=== PATIENT | female | born 1940 | race Caucasian/White ===

== ENCOUNTER → 2016-11-15 | Outpatient (CLI) | payer MEDICARE, OTHER ==
[~2016-11-15] MED LIST: ACT35T; ALBU0.8322 IH; ALBUTERAL NEB; CALC600T; CETI10CA PO; CHLS4PK PO; CHOL10003; CHOL4PAC16 PO; CHOL4PAC19 GT; CLOB15CR3 TP; CTRZ10T PO; CYAN250010 PO; CYAN500T2 PO; CYAN500T44 PO; D2 PO; D50KC PO; DEXL60CA PO; DEXL60CA5 PO; ESOM20CA; EST.625T PO; ESTR0.62 PO; FERR240T9 PO; FRSM40T PO; FURO40TA4 PO; GBPN100C PO; HDR4T PO; HYDR-2856; IRON1CAP21 PO; KCL10CCR PO; LUTE20TA PO; MECL-105 PO; MECL25TA56 PO; MELO-195 PO; MELO15TA14 PO; METF500T4 PO; MTF500T; MTF500T PO; MULT-557 PO; POTA10TA10 PO; POTA10TA6 PO; PREMARIN PO; RT-COMBINH PO; SCOP1PAT TOP; SLMFT1E INH; TERB24CR3; TRAM50TA2 PO; VIT B12 PO; VITA1CAP59 PO; primrose oil
--- NOTE | 2016-11-15 12:55 | Diagnostic Imaging Report ---
PROCEDURE: US abdomen complete. TECHNIQUE: Multiple real-time grayscale images were obtained over the abdomen in various projections. INDICATION: Vomiting. Blood in the stool. FINDINGS: The pancreas is largely obscured. The liver demonstrates no focal mass. There is hepatopetal flow in the portal vein seen. The gallbladder demonstrates a hyperechoic lesion measuring 3 mm that appears adherent to the wall without shadowing compatible with polyp. No stones or wall thickening. No pericholecystic fluid. The visualized portions of the abdominal aorta and IVC appear unremarkable. The spleen is 10.2 cm in length. The right kidney is 8.6 cm and the left kidney is 8 cm in length. There is no hydronephrosis or focal lesion. No ascites or fluid collection is noted. The CBD is 7 mm in caliber, borderline enlarged. No intrahepatic biliary dilatation seen. IMPRESSION: 3 mm gallbladder polyp is seen. No gallstones or evidence of cholecystitis. Borderline dilated CBD. No intrahepatic biliary dilatation is evident, however. Dictated by: Dictated on workstation # [id number]
== END ==
LOC: RAD 08:07
PROVIDERS: ATTEND Internal Medicine
DX: R10.84 Generalized abdominal pain (principal)
CPT/HCPCS: 76700

== ENCOUNTER 2016-12-01 05:39 | Outpatient (CLI) | payer MEDICARE, OTHER ==
[~2016-12-01] VITALS: Ht 149.9 cm; Wt 70.3 kg
[~2016-12-01 05:39] MED LIST changes: -CYAN250010 PO; -D50KC PO; -DEXL60CA PO; -ESTR0.62 PO; -IRON1CAP21 PO; -METF500T4 PO; -POTA10TA10 PO
[2016-12-01] MEDS ORDERED: POTA10TA10 PO (13:47)
[2016-12-01] MEDS ORDERED: CYAN250010 PO (13:47)
[2016-12-01] MEDS ORDERED: IRON1CAP21 PO (13:47)
[2016-12-01] MEDS ORDERED: ESTR0.62 PO (13:47)
[2016-12-01] MEDS ORDERED: D50KC PO (13:47)
[2016-12-01] MEDS ORDERED: DEXL60CA PO (13:47)
[2016-12-01] MEDS ORDERED: METF500T4 PO (13:47)
== END 2016-12-01 13:51 ==
LOC: PREOP 05:39
PROVIDERS: ATTEND Internal Medicine Gastroenterology
DX: Z01.818 Encounter for other preprocedural examination (principal); Z12.11 Encounter for screening for malignant neoplasm of colon

== ENCOUNTER 2016-12-03 11:57 | Day surgery (SDC) | payer MEDICARE, OTHER ==
[~2016-12-03 11:57] MED LIST changes: +CYAN250010 PO; +D50KC PO; +DEXL60CA PO; +ESTR0.62 PO; +IRON1CAP21 PO; +METF500T4 PO; +POTA10TA10 PO
[2016-12-03] MEDS ORDERED: NS IV 1000 ML 1,000 ML IV STA (12:27)
[2016-12-03 12:30] VITALS: BP 122/66
[2016-12-03] MEDS ORDERED: NS IV 1000 ML 1,000 ML ONE (12:31)
[2016-12-03] MEDS ORDERED: proPOfol 200 MG/20 ML (DIPRIVAN) VIAL IV ONE (13:34)
[2016-12-03] MEDS ORDERED: MIDAZOLAM 2 MG/2 ML (VERSED) VIAL ONE (14:17)
--- NOTE | 2016-12-03 14:21 | Progress Note-Pre Operative ---
Pre-Operative Progress Note H&P Reviewed The H&P was reviewed, patient examined and no changes noted. Date H&P Reviewed: Dec 03, 2016 Time H&P Reviewed: 14:18 Pre-Operative Diagnosis: Screening colonoscopy FELA TRAORE DO Dec 03, 2016 14:21
--- NOTE | 2016-12-03 14:45 | Progress Note-Post Operative ---
Post-Operative Progess Note [employer] Utility Worker none Pre-Operative Diagnosis Screening colonoscopy Post-Operative Diagnosis Tics Internal hem Post-Op Procedure Note Date of Procedure: Dec 03, 2016 Name of Procedure: colonoscopy Anesthesia Type iv sedation, propofol by medical office administrator Estimated blood loss (mL): scant Specimen(s) collected none FELA TRAORE DO Dec 03, 2016 14:45
--- NOTE | 2016-12-03 14:47 | Endoscopy Discharge Instruct ---
Findings Findings 1.: Diverticulosis, Internal Hemorrhoids Discharge Instructions - Activity: You might feel a little sleepy until tomorrow. This is due to the medicine you received to relax you. Until tomorrow, you should: NOT drive a car, operate machinery or power tools. NOT drink any alcoholic beverages. NOT make any important decisions or sign importortant papers. Do not return to work until tomorrow, unless otherwise instructed. Resume previous activities tomorrow. Diet: Start by taking liquids. If you tolerate liquids, advance to solid food. Instructions: 1.: Colonscopy in 10 years Notify Physician - If you experience excessive bleeding, unusual abdominal pain, fever, or chest pain, contact your doctor immediately. Phone number [phone] Follow-Up: - I have received and understand the above instructions and will call my doctor if I have any further questions. Patient Signature Date Nurse Signature Other (Relationship) FELA TRAORE DO Dec 03, 2016 14:47
[2016-12-03 15:00] VITALS: BP 123/74
[2016-12-03 15:30] VITALS: BP 134/76
[2016-12-03 16:00] VITALS: BP 134/76
--- NOTE | 2016-12-04 23:27 | PROCEDURE REPORT ---
PROCEDURE PHYSICIAN: FELA GARCIA DATE OF PROCEDURE: 12/03/2016 PREOPERATIVE DIAGNOSIS: Screening colonoscopy. POSTOPERATIVE DIAGNOSIS: 1. Diverticula. 2. Internal hemorrhoids. PROCEDURE: Colonoscopy. SURGEON: Dr. Garcia FUR STORAGE CLERK: None. ANESTHESIA: IV sedation with propofol by the SQL BI DEVELOPER. SPECIMENS: None. BLOOD LOSS: Scant. FLUIDS: Per anesthesia. POSTOPERATIVE: Stable. INDICATIONS FOR THE PROCEDURE: The patient is a 76-year-old female who needed a screening colonoscopy, made have had a remote history of bleeding. FINDINGS: The patient had some diverticula and some internal hemorrhoids. Internal hemorrhoids are probably grade II and most likely the cause of any bleeding she has seen or experienced. PROCEDURE NOTE: After informed consent was obtained, the patient was brought to the endoscopy suite and placed in the left lateral decubitus position. She was administered IV sedation by SQL BI DEVELOPER. Colonoscope was then inserted and pushed all the way to about 150 cm from the iliac to the cecum. Took a picture of the appendiceal orifice and then able to get into the terminal ileum. Took a picture of the internal ileum and then slowly withdrew the scope insufflating, looked circumferential knight, looked at the cecum, up the ascending colon to the hepatic flexure and then down the transverse colon to the splenic flexure into the descending colon and then down into the sigmoid. In the sigmoid, saw some diverticula, took a picture of this and then continued down into the rectum, retroflex in the rectal vault. Saw some grade II internal hemorrhoids, took a picture this and then removed the scope. There was a little bit of bleeding from around the hemorrhoids but very minimal. I removed the scope. The patient tolerated the procedure and she was transferred to recovery room in stable condition. Job ID: [id number] Dictated Date: 12/03/2016 14:49:57 Talent Acquisition Operations Manager Date: 12/04/2016 23:20:06 / nancy
== END 2016-12-03 16:00 | disposition home or self-care (01) ==
LOC: ENDO 11:57
PROVIDERS: ATTEND Surgery
DX: Z12.11 Encounter for screening for malignant neoplasm of colon (principal); K57.30 Diverticulosis of large intestine without perforation or abscess without bleeding; K64.8 Other hemorrhoids

== ENCOUNTER → 2016-12-06 | Outpatient (CLI) | payer MEDICARE, OTHER ==
[~2016-12-06] MED LIST changes: +CATHETER FLUSH 10 ML SYR IV PRN
--- NOTE | 2016-12-06 12:22 | Diagnostic Imaging Report ---
CLINICAL INDICATION: Patient with nausea, vomiting, and diarrhea. COMPARISON: Complete abdominal ultrasound dated 11/15/2016. PROCEDURE: The patient was administered 5.42 millicuries of technetium 99m Choletec. After 60 minutes of the images, one can of Ensure was drink followed by another 60 minutes of imaging. A nuclear medicine hepatobiliary scan with ejection fraction was performed. Of note, patient had mild abdominal discomfort during the exam. FINDINGS: There is prompt uptake and excretion of radiotracer by the liver. Activity is visible in the gallbladder by 15 minutes and the small bowel by 35 minutes. Ejection fraction of the gallbladder is calculated at 98% (normal >35%). The gallbladder visibly empties on the scans following the ingestion of Ensure. IMPRESSION: Normal hepatobiliary scan with normal gallbladder ejection fraction. Dictated by: Dictated on workstation # [id number]
== END ==
LOC: CARD 06:03
PROVIDERS: ATTEND Surgery
DX: R11.2 Nausea with vomiting, unspecified (principal); R19.7 Diarrhea, unspecified
CPT/HCPCS: 78227

== ENCOUNTER → 2016-12-20 | Outpatient (CLI) | payer MEDICARE, OTHER ==
[~2016-12-20] MED LIST changes: +BARIUM SUSPENSION 105% (LIQUID POLIBAR PLUS) 240 ML/DOSE PO ONE; +BARIUM SUSPENSION 60% (LIQUID EZ PAQUE) 240 ML DOSE PO ONE; -CATHETER FLUSH 10 ML SYR IV PRN
--- NOTE | 2016-12-20 11:46 | Diagnostic Imaging Report ---
EXAMINATION: Barium swallow double-contrast. INDICATION: Dysphagia Fluoroscopy time: One minute and 11 seconds TECHNIQUE: [employer] Supervisor image of the chest was performed. Subsequently, the patient was given gas forming granules for oral ingestion followed by thick and thin barium to drink. Swallowing through the esophagus was observed with fluoroscopy and overhead images, as well as multiple spot images in the upright and prone positions, were taken. FINDINGS: [employer] Supervisor image of the chest demonstrate demonstrates retrocardiac large density suggestive of hiatal hernia. No significant reflux is seen during the study. No significant the motility dysfunction is seen. There is however a moderate to large hiatal hernia. The esophagus is normal in caliber and contour. There is no mucosal abnormality, diverticulum or filling defect to suggest a mass. IMPRESSION: Moderate to large hiatal hernia containing portions of the gastric fundus and body. Dictated by: Dictated on workstation # [id number]
== END ==
LOC: RAD 10:29
PROVIDERS: ATTEND Surgery
DX: K44.9 Diaphragmatic hernia without obstruction or gangrene (principal)
CPT/HCPCS: 74220

== ENCOUNTER → 2017-09-19 | Outpatient (CLI) | payer MEDICARE, OTHER ==
[~2017-09-19] MED LIST changes: -BARIUM SUSPENSION 105% (LIQUID POLIBAR PLUS) 240 ML/DOSE PO ONE; -BARIUM SUSPENSION 60% (LIQUID EZ PAQUE) 240 ML DOSE PO ONE; -D50KC PO; +ERGO50006 PO
== END ==
LOC: CARD 12:20
PROVIDERS: ATTEND Internal Medicine Interventional Cardiology
DX: I10 Essential (primary) hypertension (principal); R06.02 Shortness of breath; R55 Syncope and collapse
CPT/HCPCS: 93306

== ENCOUNTER 2017-10-14 09:15 | Outpatient (RCR) | payer MEDICARE, OTHER ==
[~2017-10-14 09:15] MED LIST changes: -SCOP1PAT TOP; +SCOP1PAT11 TOP
== END 2017-12-19 | disposition home or self-care (01) ==
LOC: CARD 09:15
PROVIDERS: ATTEND Internal Medicine Interventional Cardiology
DX: R55 Syncope and collapse (principal)
CPT/HCPCS: 93270

== ENCOUNTER 2017-10-20 09:48 | Outpatient (RCR) | payer MEDICARE, OTHER ==
[~2017-10-20 09:48] MED LIST changes: -METF500T4 PO; +METF500T5 PO
== END 2018-01-18 | disposition home or self-care (01) ==
LOC: CARD 09:48
PROVIDERS: ATTEND Internal Medicine Interventional Cardiology
DX: I10 Essential (primary) hypertension (principal); R06.02 Shortness of breath; R55 Syncope and collapse
CPT/HCPCS: 93225; 93226

== ENCOUNTER 2017-12-29 08:32 | Outpatient (CLI) | payer MEDICARE, OTHER ==
[~2017-12-29] VITALS: Ht 147.3 cm; Wt 65.3 kg
[2017-12-29] VITALS (38 sets, daily range): BP systolic 65–136; BP diastolic 42–72
[~2017-12-29 08:32] MED LIST changes: +METF500T4 PO; -METF500T5 PO
[2017-12-29] MEDS ORDERED: NS IV 1000 ML 1,000 ML ONE (08:40)
[2017-12-29] MEDS ORDERED: LIDOCAINE 1% INJ 50 ML (XYLOCAINE) VIAL ONE (08:42)
[2017-12-29] MEDS ORDERED: NS IV 1000 ML 1,000 ML IV SCH (09:00)
--- NOTE | 2017-12-29 10:44 | Implantation of Loop Monitor ---
Implant of Loop Monitior PROCEDURE PHYSICIAN: Tara Dudley MD IMPLANTATION OF LOOP MONITOR REPORT DATE OF PROCEDURE: 12/29/17 ATTENDING PHYSICIAN: Dr. Yosvany Dudley. REFERRING PHYSICIAN: PERFORMING PHYSICIAN: Dr. Yosvany Dudley. INDICATION: Syncope, atrial fibrillation PREOP DIAGNOSIS: Syncope, atrial fibrillation POSTOP DIAGNOSIS: s/p implantation of loop recorder. PROCEDURE DETAILS: The patient is a 77 female with history of syncope. Therefore implantable loop recorder was discussed and agreed with the patient. Informed consent was taken. All risks and complications were discussed at length. The patient was draped and prepped in the usual sterile fashion. Local anesthesia was lidocaine, which was given in the substernal area close to the 4th intercostal space. Medtronic Linq Loop monitor was implanted according to the protocol. Steri-Strips were placed at the end of the procedure. There were no complications and the patient tolerated the procedure well. The device was interrogated with a voltage of 0.56mv. ANESTHESIA: Local anesthesia with lidocaine. COMPLICATIONS: None CONTRAST/FLUOROSCOPY: None CONCLUSION: 1. Successful implantation of medtronic linq loop monitor for syncope and atrial fibrillation. 2. No complication and the patient tolerated the procedure well. Tara Dudley MD, RS, CCDS Cardiac Electrophysiology Ed DUDLEY MD Dec 29, 2017 10:44 am
== END 2017-12-29 11:20 | disposition home or self-care (01) ==
LOC: CARD 08:32
PROVIDERS: ATTEND Internal Medicine Interventional Cardiology
DX: R55 Syncope and collapse (principal)
CPT/HCPCS: 33282; 93005; 93660

== ENCOUNTER 2018-03-07 13:32 | Emergency (ER) | payer MEDICARE, OTHER ==
[~2018-03-07] VITALS: Ht 149.9 cm; Wt 63.5 kg
[~2018-03-07 13:32] MED LIST changes: -METF500T4 PO; +METF500T5 PO
--- NOTE | 2018-03-07 13:43 | ED Upper Extremity ---
General Stated Complaint: LEFT ELBOW INJURY-FALL Source: patient Exam Limitations: no limitations History of Present Illness Date Seen by Provider: Mar 07, 2018 Time Seen by Provider: 13:41 Initial Comments to ER with reports of a left elbow injury. Patient tripped and fell at home about an hour ago. She is unsure why she fell or what she landed on that she injured the left arm. She has 2 skin tears over the left humerus. Did not hit her head and there were no other injuries. Onset: just prior to arrival Severity: moderate Pain/Injury Location: left shoulder, left arm, left elbow Modifying Factors: Worse With Movement Allergies and Home Medications Allergies Coded Allergies: aspirin (Verified Allergy, Unknown, 01/03/06) cephalexin (Verified Allergy, Unknown, NAUSEA ONLY, 05/26/09) codeine (Verified Allergy, Unknown, 01/03/06) diazepam (Verified Allergy, Unknown, 01/03/06) erythromycin base (Verified Allergy, Unknown, 01/03/06) milk (Unverified Allergy, Unknown, 12/01/15) FROM UNCODED ALLERGIES Uncoded Allergies: TAPE (Allergy, Unknown, 01/03/06) Home Medications Albuterol Sulfate 2.5 Mg/3 Ml Solution, 2.5 MG IH BID, (Reported) NEEDED FOR SHORTNESS OF BREATH Cyanocobalamin (Vitamin B-12) Unknown Strength Tablet, 1,000 MCG PO DAILY, ( Reported) Dexlansoprazole 60 Mg , 60 MG PO DAILY, (Reported) Ergocalciferol (Vitamin D2) 50,000 Unit Capsule, 50,000 UNIT PO twice weekly, ( Reported) take on and Tuesday Estrogens, Conjugated 0.625 Mg Tablet, 0.625 MG PO DAILY PRN for mood swings, ( Reported) Furosemide 40 Mg Tablet, 20-40 MG PO BID, (Reported) take 1 tab in am take 1/2 of 40mg tab in evening Ipratropium/Albuterol Sulfate 14.7 Gm Aer.w.adap, 2 PUFF PO EVERY 4-6 HOURS PRN for SHORTNESS OF BREATH, (Reported) NEEDED FOR SHORTNESS OF BREATH Iron Ps Cmplx/Vit B12/FA 1 Each Capsule, 1 EACH PO DAILY, (Reported) Meloxicam 15 Mg Tablet, 15 MG PO DAILY, (Reported) Metformin HCl 500 Mg Tablet, 500 MG PO BID, (Reported) Potassium Chloride 10 Meq Tablet.er, 10 MEQ PO BID, (Reported) Salmeterol Xinaf/Fluticasone 1 Diskus Inhp, 1 PUFF INH BID, (Reported) Patient Home Medication List Home Medication List Reviewed: Yes Constitutional: see HPI EENTM: see HPI Respiratory: no symptoms reported Cardiovascular: no symptoms reported Genitourinary: no symptoms reported Musculoskeletal: see HPI Skin: no symptoms reported Psychiatric/Neurological: No Symptoms Reported Past Befuwnh-Jebowq-Vjscsj Hx Patient Social History Recent Foreign Travel: No Contact w/Someone Who Travel: No Recent Hopitalizations: No Immunizations Up To Date Tetanus Booster (TDap): Unknown Date of Pneumonia Vaccine: Jun 03, 2016 Date of Influenza Vaccine: Jun 03, 2016 Seasonal Allergies Seasonal Allergies: Yes Past Medical History Bladder Surgery, Joint Replacement, Orthopedic Asthma, Chronic Bronchitis High Cholesterol, Hypertension Reproductive Disorders: No Sexually Transmitted Disease: No Gastroesophageal Reflux, Chronic Diarrhea, Polyps, Irritable Bowel Arthritis Diabetes, Non-Insulin dep Loss of Vision: Bilateral Hearing Impairment: Denies Adverse Reaction/Blood Tranf: No Family Medical History Dementia 03 MOTHER Family history: Arthritis 03 FATHER 03 MOTHER 09 BROTHER 09 SISTER Family history: Asthma 09 BROTHER Family history: Cardiovascular disease 03 FATHER 03 MOTHER Family history: Diabetes mellitus 09 BROTHER Family history: Hypertension 03 MOTHER Family history: Thyroid disorder 03 MOTHER 09 SISTER Heart disease 03 FATHER History of - respiratory disease 09 SISTER (COPD) Myocardial infarction 03 FATHER Stroke 03 MOTHER No Family History of: Abdominal aortic aneurysm Alcoholism Cancer Family history: Alzheimer's disease Family history: Breast disease Family history: Gastrointestinal disease Physical Exam Vital Signs Vital Signs - First Documented 03/07/18 13:36 Temp 98.0 Pulse 71 Resp 18 B/P (MAP) 104/74 (84) Pulse Ox 98 O2 Delivery Room Air Capillary Refill : General Appearance: WD/WN, no apparent distress HEENT: PERRL/EOMI, normal ENT inspection Neck: non-tender, full range of motion Respiratory: normal breath sounds, no respiratory distress, no accessory muscle use Gastrointestinal: normal bowel sounds, non tender, soft Shoulder: normal inspection, non-tender, normal ROM (superficial skin tear to the anterior midshaft of the left humerus with small amount of ecchymosis around this. Also a skin tear/avulsion to the dorsal aspect left elbow. Maintains full flexion and extension abilities albeit with some pain on full extension. Maintains full supination and pronation abilities. Distally she is neurovascularly intact) Elbow/Forearm: normal inspection, non-tender Wrist: Yes normal inspection, Yes non-tender Hand: normal inspection, non-tender Neurologic/Psychiatric: alert, normal mood/affect, oriented x 3 Skin: normal color, warm/dry Progress/Results/Core Measures Results/Orders My Orders Orders - KATINA FELIZ APRN Shoulder, Left, 3 Views (03/07/18 13:39) Elbow, Left, 3 Views (03/07/18 13:39) Forearm, Left, 2 Views (03/07/18 13:39) Dipht,Pertuss(Acell),Tet Adult (Boostrix (03/07/18 13:45) Medications Given in ED Current Medications Medications Dose Ordered Sig/Kamlesh Route Start Time Stop Time Status Last Admin Dose Admin Diphtheria/ Tetanus/Acell Pertussis 0.5 ml ONCE ONCE IM 03/07/18 13:45 03/07/18 13:46 DC 03/07/18 14:06 0.5 ML Vital Signs/I&O 03/07/18 13:36 Temp 98.0 Pulse 71 Resp 18 B/P (MAP) 104/74 (84) Pulse Ox 98 O2 Delivery Room Air Departure Communication (Admissions) skin tear dressed with mepilex Impression Primary Impression: Skin tear Additional Impression: Contusion of left arm Disposition: 01 HOME, SELF-CARE Condition: Stable Departure-Patient Inst. Decision time for Depature: 14:46 Referrals: SYBIL LIMA DO (PCP/Family) Primary Care Physician Patient Instructions: Wound Care Add. Discharge Instructions: 1. Follow-up with Dr. Lima later this week 2. Remove the dressing that was applied in the emergency room on 03/12 KATINA FELIZ APRN Mar 07, 2018 13:43
[2018-03-07] MEDS ORDERED: TETANUS,DIPTH,PERTUSS P/F (BOOSTRIX) 0.5 ML VIAL IM ONE (13:45)
--- NOTE | 2018-03-07 14:30 | Diagnostic Imaging Report ---
Indication: Left elbow pain Three views of the left elbow show no fracture, dislocation or pathologic effusion. Impression: Negative left elbow. Dictated by: Dictated on workstation # [id number]
--- NOTE | 2018-03-07 14:30 | Diagnostic Imaging Report ---
Indication: Left forearm injury from a fall Two views of the left forearm showed no fracture or dislocation. Impression: Negative left forearm. Dictated by: Dictated on workstation # [id number]
--- NOTE | 2018-03-07 14:31 | Diagnostic Imaging Report ---
Indication: Left shoulder pain. Three views of the left shoulder show postop changes from joint arthroplasty. No evidence of loosening or acute fracture. Impression: Postop changes from left shoulder arthroplasty. No acute abnormality seen. Dictated by: Dictated on workstation # [id number]
[2018-03-07 14:57] VITALS: BP 104/74
== END 2018-03-07 14:57 | disposition home or self-care (01) ==
LOC: EDUNIT# 13:32 → ER 13:33
DX: S51.012A Laceration without foreign body of left elbow, initial encounter (principal); J45.909 Unspecified asthma, uncomplicated; E78.00 Pure hypercholesterolemia, unspecified; E11.9 Type 2 diabetes mellitus without complications; I10 Essential (primary) hypertension; K21.9 Gastro-esophageal reflux disease without esophagitis; Z87.19 Personal history of other diseases of the digestive system; Z86.010 Personal history of colon polyps; Z23 Encounter for immunization; Z82.49 Family history of ischemic heart disease and other diseases of the circulatory system; Z88.6 Allergy status to analgesic agent; Z88.5 Allergy status to narcotic agent; Z88.8 Allergy status to other drugs, medicaments and biological substances; Z88.1 Allergy status to other antibiotic agents; Z79.51 Long term (current) use of inhaled steroids; Z79.84 Long term (current) use of oral hypoglycemic drugs; W01.0XXA Fall on same level from slipping, tripping and stumbling without subsequent striking against object, initial encounter; Y92.009 Unspecified place in unspecified non-institutional (private) residence as the place of occurrence of the external cause
CPT/HCPCS: 73030; 73080; 73090; 90471; 90715

== ENCOUNTER 2019-02-07 09:27 | Day surgery (SDC) | payer MEDICARE, OTHER ==
[~2019-02-07] VITALS: Ht 149.9 cm; Wt 63.5 kg
[~2019-02-07 09:27] MED LIST changes: +ERYT-99 PO; +HYOS-20 PO; +IPRA3AMP31 IH; +LIPA1CAP2 PO; +LISI10TA2 PO; +METF-397 PO; -METF500T5 PO; +METO-387 PO; +METO5TAB2 PO; +OMEP40CA36 PO
[2019-02-07] MEDS ORDERED: NS IV 500 ML 500 ML IV PRN (09:43)
[2019-02-07] MEDS ORDERED: fentaNYL INJECTION 100 MCG/2 ML AMP IVP ONE (09:45)
[2019-02-07] MEDS ORDERED: MIDAZOLAM 2 MG/2 ML (VERSED) VIAL IVP ONE (09:45)
[2019-02-07] MEDS ORDERED: LIDOCAINE JELLY 2% 6 ML SYRINGE MM PRN (09:45)
[2019-02-07] MEDS ORDERED: HURRICAINE EXT TUBE (BENZOCAINE) XX PRN (09:45)
[2019-02-07 09:56] VITALS: BP 138/73
--- NOTE | 2019-02-07 10:20 | Conscious Sedation/ASA ---
Conscious Sedation Pre-Proced Time 10:00 ASA Score 2 For ASA 3 and 4: Consider anesthesia and medical clearance. Also, for patients with a history of failed moderate sedation consider anesthesia. Airway Lungs Heart ASA score ASA 1: a normal healthy patient ASA 2: a patient with a mild systemic disease (mid diabetes, controlled hypertension, obesity ASA 3: a patient with a severe systemic disease that limits activity (angina , COPD, prior Myocardial infarction) ASA 4: a patient with an incapacitating disease that is a constant threat to life (CHF, renal failure) ASA 5: a moribund patient not expected to survive 24 hrs. (ruptured aneurysm) ASA 6: a declared brain- patient whose organs are being harvested. For emergent operations, add the letter E after the classification Mallampati Classification Grade 2 Sedation Plan Analgesia, Amnesia, Plan communicated to team members, Discussed options with patient/fam, Discussed risks with patient/fam The patient is an appropriate candidate to undergo the planned procedure, sedation, and anesthesia. The patient immediately re-assessed prior to indication. ROSENDO MANCILLA MD February 07, 2019 10:20
--- NOTE | 2019-02-07 10:21 | Progress Note-Pre Operative ---
Pre-Operative Progress Note H&P Reviewed The H&P was reviewed, patient examined and no changes noted. Date Seen by Provider: February 07, 2019 Time Seen by Provider: 10:00 Date H&P Reviewed: February 07, 2019 Time H&P Reviewed: 10:00 Pre-Operative Diagnosis: GERD, dysphagia ROSENDO MANCILLA MD February 07, 2019 10:21
--- NOTE | 2019-02-07 10:23 | Discharge Inst-Surgical ---
D/C Lap Instructions-CHARO Follow Up Activity as tolerated Regular Diet Symptoms to Report: Fever over 101 degree F, Nausea/Vomiting Infection Signs and Symptoms to report: Increased redness, Foul odor of wound, Increased drainage Bathing instructions: May shower Operative Area Clean/Dry; Keep incision clean/dry If any problems/questions: Contact your physician or go to Emergency Room ROSENDO MANCILLA MD February 07, 2019 10:23
[2019-02-07] MEDS ORDERED: HYDROcodone/APAP 5 MG/325 MG (LORTAB) TAB PO PRN (10:30)
[2019-02-07] MEDS ORDERED: morphine INJ 10 MG/ML 1ML (SYR OR VIAL) IV PRN (10:30)
[2019-02-07] MEDS ORDERED: ONDANSETRON 4 MG/2 ML (SDV) Z0FRAN IV PRN (10:30)
[2019-02-07] MEDS ORDERED: ACETAMINOPHEN 325 MG TABLET PO PRN (10:30)
[2019-02-07] MEDS ORDERED: MIDAZOLAM 2 MG/2 ML (VERSED) VIAL ONE ×3 (11:51→11:52)
[2019-02-07] MEDS ORDERED: LIDOCAINE JELLY 2% 6 ML SYRINGE ONE (11:52)
[2019-02-07] MEDS ORDERED: HURRICAINE EXT TUBE (BENZOCAINE) ONE (11:52)
[2019-02-07] MEDS ORDERED: fentaNYL INJECTION 100 MCG/2 ML AMP ONE (11:52)
[2019-02-07 13:00] VITALS: BP 119/67
[2019-02-07 13:33] VITALS: BP 133/78
[2019-02-07 13:38] VITALS: BP 133/78
--- NOTE | 2019-02-07 19:58 | OPERATIVE REPORT ---
DATE OF SERVICE: 02/07/2019 ATTENDING PRIMARY CARE PHYSICIAN: Dr. Dawn. PREOPERATIVE DIAGNOSES: Dysphagia, chronic cough, history of pneumonia x2. POSTOPERATIVE DIAGNOSES: Reflux esophagitis stage II, large recurrent hiatal hernia approximately 5 cm in size, 2 small antral ulcers, retained food substance within the stomach consistent with gastroparesis. Pylorus and duodenum appeared normal and no distal obstructions. PROCEDURE: EGD with biopsy. SURGEON: Rosendo Mancilla MD ANESTHESIA: Conscious sedation. ESTIMATED BLOOD LOSS: Minimal. FINDINGS: As above in the postoperative diagnoses. DISPOSITION: The patient tolerated the procedure well. INDICATIONS: The patient is a 78-year-old female known to us. We had initially seen her in 2018 for recurrent dysphagia and chronic cough. She was found to have a hiatal hernia around 2003 and underwent a hiatal hernia repair with some form of antireflux procedure. She then had recurrence of the hiatal hernia and underwent a revision approximately one year later. Over time she had developed substernal pressure sensation as well as a chronic cough requiring balloon dilatation and some form of revision of the esophageal hiatus. We have seen her for recurrent issues with dysphagia and performed an EGD on 05/31/2018 and found to have reflux esophagitis stage III, mild distal esophageal stricture, mild recurrent hiatal hernia at that time approximately 1.5 cm in size. There was also significant amount of retained food substance within the stomach consistent with gastroparesis. She has had two episodes of pneumonia requiring admission approximately one month apart. A CT scan was performed on one of these admissions and was found to have a large retrocardiac recurrent hiatal hernia. DESCRIPTION OF PROCEDURE: The patient was brought to the endoscopy suite, laid in the left lateral decubitus position. After adequate IV pain and sedating medications and conscious sedation anesthesia, the mouthpiece was applied. Endoscope was placed in the mouth, visualizing the pharynx and hypopharyngeal region. Vocal cords, epiglottis and vallecula identified and appeared to be normal. Endoscope was then gently intubated the esophageal opening and esophagus insufflated. The endoscope was then advanced the first, second and third portion of esophagus to the level of the GE junction, a reflux esophagitis stage II identified. There were no ulcers or strictures identified. A biopsy was taken of the GE junction with visualization of good hemostasis. The endoscope was then easily advanced in the stomach. Scope retroflexed, visualizing a large recurrent hiatal hernia approximately 5 cm in size. There was also a significant amount of retained food substance in the stomach after being n.p.o. again consistent with gastroparesis. There were two small ulcers at the antrum, both approximately 2 mm in size. One was biopsied to rule out H. pylori. The endoscope was then advanced to the pylorus and the first and second portion of duodenum, which appeared normal with no distal obstructions. The endoscope was then slowly withdrawn with taking a second look and suctioning of residual air with no additional findings. The patient tolerated the procedure well. We will proceed with a trial of erythromycin 500 mg q.8 hours as a prokinetic to increase the motilin production in the gastrointestinal tract. We feel that she does have a significant size recurrent hiatal hernia and a shortened esophagus as well. If she does choose to have this repaired more than likely she will need an esophageal lengthening procedure and a mesh repair and we would refer her to an esophageal thoracic specialist that does this procedure. Job ID: [id number] DocumentID: [id number] Dictated Date: 02/07/2019 12:44:53 Shank Sander Date: 02/07/2019 19:57:48 Dictated By: ROSENDO MANCILLA MD
== END 2019-02-07 13:50 | disposition home or self-care (01) ==
LOC: ENDO 09:27
PROVIDERS: ATTEND Surgery
DX: K21.0 Gastro-esophageal reflux disease with esophagitis (principal); K44.9 Diaphragmatic hernia without obstruction or gangrene; K25.9 Gastric ulcer, unspecified as acute or chronic, without hemorrhage or perforation; Q39.8 Other congenital malformations of esophagus; Z87.01 Personal history of pneumonia (recurrent); I10 Essential (primary) hypertension; I48.91 Unspecified atrial fibrillation; J45.909 Unspecified asthma, uncomplicated; K86.89 Other specified diseases of pancreas; Z96.653 Presence of artificial knee joint, bilateral; Z79.899 Other long term (current) drug therapy; Z96.612 Presence of left artificial shoulder joint; Z88.5 Allergy status to narcotic agent
CPT/HCPCS: 88305

== ENCOUNTER → 2019-04-02 | Outpatient (CLI) | payer MEDICARE, OTHER ==
--- NOTE | 2019-04-02 13:55 | Diagnostic Imaging Report ---
INDICATION: Screening. TECHNIQUE: The current study was also evaluated with a Computer Aided Detection (CAD) system. 3D Tomographic imaging was also performed. COMPARISON: 08/05/2017, 04/25/2014, and 12/12/2012. FINDINGS: There are scattered fibroglandular densities bilaterally. There are a few benign type calcifications. There is no dominant mass, spiculated lesion, or suspicious calcification identified. The skin, nipples, and axillae are unremarkable. IMPRESSION: Benign findings. ACR BI-RADS Category 2: Benign findings. Result letter will be mailed to the patient. Note: At least 10% of breast cancer is not imaged by mammography. Dictated by: Dictated on workstation # [id number]
== END ==
LOC: RAD 11:14
PROVIDERS: ATTEND Internal Medicine
DX: Z12.31 Encounter for screening mammogram for malignant neoplasm of breast (principal)
CPT/HCPCS: 77067

== ENCOUNTER 2019-12-05 12:44 | Outpatient (CLI) | payer MEDICARE, OTHER ==
[~2019-12-05] VITALS: Ht 149.9 cm; Wt 65.9 kg
[~2019-12-05 12:44] MED LIST changes: -METO-387 PO; +MTP25TSR PO; +OMEP40CA27 PO; -OMEP40CA36 PO; -TRAM50TA2 PO; +TRM50T PO
[2019-12-05 13:30] VITALS: BP 127/72
[2019-12-05] MEDS ORDERED: IRON DEXTRAN 25 MG/NS 6.25 ML TOTAL VOLUME IV NR ×3 (13:30)
[2019-12-05] MEDS ORDERED: IRON DEXTRAN 1,000 MG/NS 250 ML IVPB IV NR ×2 (13:45)
== END 2019-12-05 16:00 | disposition home or self-care (01) ==
LOC: SDC 12:44
PROVIDERS: ATTEND Internal Medicine
DX: D50.9 Iron deficiency anemia, unspecified (principal)
CPT/HCPCS: 96365; 96366

== ENCOUNTER → 2020-06-30 | Outpatient (CLI) | payer MEDICARE, OTHER | LOC: CARD 10:09 | PROVIDERS: ATTEND Internal Medicine Interventional Cardiology | DX: I08.3 Combined rheumatic disorders of mitral, aortic and tricuspid valves (principal); I11.9 Hypertensive heart disease without heart failure | CPT/HCPCS: 93306 ==

== ENCOUNTER → 2020-08-25 | Outpatient (CLI) | payer MEDICARE, OTHER ==
--- NOTE | 2020-08-25 13:56 | Diagnostic Imaging Report ---
INDICATION: Screening. TECHNIQUE: The current study was also evaluated with a Computer Aided Detection (CAD) system. 3-D Tomographic imaging was also performed. COMPARISON: 04/02/2019, 08/05/2017, and 04/25/2014. FINDINGS: There are scattered fibroglandular densities bilaterally. There are a few benign type calcifications. There is no dominant mass, spiculated lesion, or suspicious calcification identified. The skin, nipples, and axillae are unremarkable. IMPRESSION: Benign findings as above. ACR BI-RADS Category 2: Benign findings. Result letter will be mailed to the patient. Note: At least 10% of breast cancer is not imaged by mammography. Dictated by: Dictated on workstation # [id number]
== END ==
LOC: RAD 11:00
PROVIDERS: ATTEND Internal Medicine
DX: Z12.31 Encounter for screening mammogram for malignant neoplasm of breast (principal)
CPT/HCPCS: 77063; 77067

== ENCOUNTER → 2021-05-26 | Outpatient (CLI) | payer MEDICARE, OTHER ==
[~2021-05-26] MED LIST changes: +ERYT-108 PO; -ERYT-99 PO; -LISI10TA2 PO; +LISI10TA25 PO; -OMEP40CA27 PO; +OMEP40CA6 PO
--- NOTE | 2021-05-26 13:04 | Diagnostic Imaging Report ---
PROCEDURE: CT abdomen without contrast. TECHNIQUE: Multiple contiguous axial images were obtained through the abdomen without the use of intravenous contrast. Auto Exposure Controls were utilized during the CT exam to meet ALARA standards for radiation dose reduction. INDICATION: Palpable nodules around the umbilicus. Evaluate for mass. History of hernia. COMPARISON: None. FINDINGS: The included lung bases are clear. The heart size is prominent. A moderate hiatal hernia is seen. The liver, spleen, and adrenal glands have an unremarkable noncontrast CT appearance. There is fatty atrophy of the pancreas without evidence of focal pancreatic mass. The kidneys demonstrate no acute abnormalities. No hydronephrosis or renal calculi. No pathologically enlarged lymphadenopathy is seen in the abdomen. The included loops of bowel are nondistended. No free fluid or free air is seen in the abdomen. A few scattered diverticula are seen in the descending colon. A fat-containing periumbilical hernia is seen. No significant inflammatory changes are associated with this periumbilical hernia. There is calcified aortic and iliac atherosclerotic plaque without aneurysm. No acute fracture is seen in the included osseous structures. There is grade 1 anterolisthesis of L5 on S1. Endplate sclerotic changes are seen at the L1-L2 and L2-L3 levels. IMPRESSION: 1. Fat-containing periumbilical hernia, likely representing the patient's history of palpable mass near the umbilicus. No entrapped loops of bowel are seen. No associated inflammatory changes are present. 2. Moderate hiatal hernia. 3. Grade 1 anterolisthesis of L5 on S1. 4. Endplate sclerotic changes at L1-L2 and L2-L3. 5. Cardiomegaly. Dictated by: Dictated on workstation # [id number]
== END ==
LOC: RAD 12:15
PROVIDERS: ATTEND Nurse Practitioner Family
DX: K44.9 Diaphragmatic hernia without obstruction or gangrene (principal); M43.17 Spondylolisthesis, lumbosacral region; K42.9 Umbilical hernia without obstruction or gangrene; I51.7 Cardiomegaly; R19.04 Left lower quadrant abdominal swelling, mass and lump
CPT/HCPCS: 74150

== ENCOUNTER → 2021-09-16 | Outpatient (CLI) | payer MEDICARE, OTHER ==
[~2021-09-16] MED LIST changes: +POTA-160 PO; -POTA10TA6 PO; +REGADENOSON 0.4 MG/5 ML SYR (LEXISCAN) IV ONE; +SCOP1PAT10 TOP; -SCOP1PAT11 TOP
[2021-09-16] MEDS: CATHETER FLUSH 10 ML SYR IV PRN ×2 (10:57→13:15)
[2021-09-16 13:13] VITALS: BP 138/70
--- NOTE | 2021-09-16 15:17 | Cardiology Stress Test Report ---
Stress Test Report Date of Procedure/Referring: Date of Procedure: Sep 16, 2021 PCP Chanda Hoover MD Admitting Physician Elysia Dawn DO Indications: CP Baseline Heart Rate: 56 Baseline Blood Pressure: Blood Pressure Systolic: 138 Blood Pressure Diastolic: 70 Baseline Vitals Vital Signs Date Time Temp Pulse Resp B/P (MAP) Pulse Ox O2 Delivery O2 Flow Rate FiO2 09/16/21 13:13 58 16 138/70 (92) 98 Room Air Baseline EKG: Baseline EKG: RBBB Summary After explaining the procedure to the patient, she signed a consent and then brought to the stress nuclear laboratory. Patient received 0.4 mg Lexiscan for stress test, ECG, heart rate and blood pressure were monitored continuously. Resting and stress dose of radio tracer w ere injected, imaging was acquired and reviewed in short axis, horizontal long axis and vertical long axis views. TID: 1.14 SSS: 6 SDS: 6 EF: 77 1. Patient tolerated Lexiscan well 2. Baseline right bundle branch block persisted during test 3. Breast attenuation with decreased uptake involving the mid to apical anterolateral and inferolateral wall with mild reversibility, probably secondary to breast attenuation 4. Normal left ventricular size, EF 77% 5. Overall nondiagnostic stress test. CHANDA HOOVER MD Sep 16, 2021 15:17
== END ==
LOC: CARD 10:12
PROVIDERS: ATTEND Internal Medicine Cardiovascular Disease
DX: I08.0 Rheumatic disorders of both mitral and aortic valves (principal); I11.9 Hypertensive heart disease without heart failure; I25.10 Atherosclerotic heart disease of native coronary artery without angina pectoris
CPT/HCPCS: 78452; 93017; 93306; A9502

== ENCOUNTER → 2021-10-15 | Outpatient (CLI) | payer MEDICARE, OTHER ==
[~2021-10-15] MED LIST changes: -REGADENOSON 0.4 MG/5 ML SYR (LEXISCAN) IV ONE
--- NOTE | 2021-10-15 17:22 | Diagnostic Imaging Report ---
INDICATION: Routine screening. COMPARISON is made with prior mammograms of 08/25/2020 and 04/02/2019. 2-D and 3-D bilateral screening mammography was performed with CAD. Both breasts are heterogeneously dense, limiting the sensitivity of mammography. Cardiac loop recorder overlies the medial left breast. The parenchymal pattern is stable. No mass or malignant-appearing microcalcifications are seen. Axillae are unremarkable. IMPRESSION: BI-RADS Category 1 No mammographic features suspicious for malignancy are identified. ACR BI-RADS Category 1: Negative. Result letter will be mailed to the patient. Note: At least 10% of breast cancer is not imaged by mammography. Dictated by: Dictated on workstation # [id number]
== END ==
LOC: RAD 11:15
PROVIDERS: ATTEND Internal Medicine
DX: Z12.31 Encounter for screening mammogram for malignant neoplasm of breast (principal)
CPT/HCPCS: 77063; 77067

== ENCOUNTER → 2021-11-24 | Outpatient (CLI) | payer MEDICARE, OTHER ==
[~2021-11-24] MED LIST changes: +CATHETER FLUSH 10 ML SYR IV PRN; +HOLD METFORMIN - RECEIVED CONTRAST 20 ML VIAL IV SCH; +IOHEXOL 350 MG/ML 100 ML (OMNIPAQUE 350) VIAL IV ONE; +NS 100 ML (IVPB) BAG IV ONE
--- NOTE | 2021-11-24 19:18 | Diagnostic Imaging Report ---
PROCEDURE: CT abdomen and pelvis with contrast. TECHNIQUE: Multiple contiguous axial images were obtained through the abdomen and pelvis after administration of intravenous contrast. Auto Exposure Controls were utilized during the CT exam to meet ALARA standards for radiation dose reduction. All CT scans use one or more of the following dose optimizing techniques: automated exposure control, MA and/or KvP adjustment based on patient size and exam type or iterative reconstruction. INDICATION: A ventral abdominal wall hernia. COMPARISON with prior abdominal pelvic CT performed on 05/26/2021. FINDINGS: Ventral abdominal wall umbilical fatty hernia, unchanged from prior exam. No herniation of viscus. No evidence for strangulation or inflammatory changes with a fatty hernia sac. There is a more broad-based supraumbilical ventral abdominal wall defect right of midline which may be brenda-incisional. This is not present on prior. This also showed no evidence for incarceration or strangulation and contains no viscus. No acute-appearing abdominal wall pathology. A large retrocardiac gastric hernia, stable. Postoperative changes near the EG junction, stable. There is an elevated colonic fecal load throughout the colon from cecum to rectum consistent with pancolonic constipation of mild to moderate severity. No focal impaction and no resultant bowel obstruction. No bowel wall thickening. No perienteric or pericolonic edema. The gallbladder is surgically absent with some stable senescent and postcholecystectomy biliary ectasia, unchanged. There is no hydroureteronephrosis. No solid or cystic renal mass. No bowel obstruction. No ascites. Surgical clips in the pelvis, stable. No pneumatosis. No free air. Atherosclerotic aortic disease patent and nonaneurysmal. IMPRESSION: 1. Pancolonic constipation without obstruction. 2. Periumbilical fatty hernia, stable. Supraumbilical fatty ventral abdominal wall hernias have developed without strangulation or inflammatory changes nor viscus within either hernia sac. 3. No bowel, biliary or urinary tract obstruction. No ascites or fluid collection. Dictated by: Dictated on workstation # [id number]
== END ==
LOC: RAD 14:15
DX: K43.9 Ventral hernia without obstruction or gangrene (principal); K42.9 Umbilical hernia without obstruction or gangrene; K59.09 Other constipation; Z90.49 Acquired absence of other specified parts of digestive tract; Z98.890 Other specified postprocedural states
CPT/HCPCS: 74177

== ENCOUNTER → 2022-06-16 | Outpatient (CLI) | payer OTHER, MEDICARE ==
[~2022-06-16] MED LIST changes: -CATHETER FLUSH 10 ML SYR IV PRN; -HOLD METFORMIN - RECEIVED CONTRAST 20 ML VIAL IV SCH; -IOHEXOL 350 MG/ML 100 ML (OMNIPAQUE 350) VIAL IV ONE; -NS 100 ML (IVPB) BAG IV ONE
== END ==
LOC: LABNPT 08:23
PROVIDERS: ATTEND Internal Medicine
DX: Z01.89 Encounter for other specified special examinations (principal)
CPT/HCPCS: 84145

== ENCOUNTER → 2022-11-01 | Outpatient (CLI) | payer MEDICARE, OTHER ==
--- NOTE | 2022-11-01 16:06 | Diagnostic Imaging Report ---
INDICATION: Routine screening. COMPARISON: 10/15/2021 and 08/25/2020. TECHNIQUE: 2D and 3D bilateral screening mammography was performed with CAD. FINDINGS: Scattered fibroglandular densities are identified bilaterally. A cardiac loop recorder overlies the medial left breast tissues. The parenchymal pattern is stable. No mass or malignant-appearing microcalcifications are seen. The axillae are unremarkable. IMPRESSION: No mammographic features suspicious for malignancy are identified. ACR BI-RADS Category 1: Negative. Result letter will be mailed to the patient. Note: At least 10% of breast cancer is not imaged by mammography. Dictated by: Dictated on workstation # [id number]
== END ==
LOC: RAD 14:45
PROVIDERS: ATTEND Internal Medicine
DX: Z12.31 Encounter for screening mammogram for malignant neoplasm of breast (principal)
CPT/HCPCS: 77063; 77067